=== PATIENT | male | born 1985 | race Caucasian/White ===

== ENCOUNTER 2021-02-05 10:01 | Emergency (ER) | payer OTHER ==
[~2021-02-05] VITALS: Ht 172.7 cm; Wt 121.7 kg
--- NOTE | 2021-02-05 10:40 | RAD ---
EXAM: Left knee, 4 views; left foot, 3 views; left tibia and fibula, 2 views. HISTORY: Blunt trauma. COMPARISON: None. FINDINGS: 3 views of the left foot, 4 views of the left ankle and 2 views of the left tibia and fibul a are obtained. There is no fracture, dislocation or subluxation. There is no knee effusion. There is enthesopathy at the Achilles tendon insertion. There are corticated ossicles inferior to the medial and lateral malleoli, likely due to the sequela of remote injury. The ankle mortise is intact. There is no osteochondral lesion. IMPRESSION: No acute osseous finding. Electronically signed by: Magdalena Lopez MD (02/05/2021 10:38 AM) [id number]
--- NOTE | 2021-02-05 11:00 | PHYS DOC ---
Past History Past Surgical History: Appendectomy Alcohol Use: Occasionally General Adult EDM: Chief Complaint: LOWER EXT PAIN HPI: HPI: 36-year-old male presents with a left salinas pain and bruising of the medial left foot. The patient slipped in the shower 2 days ago and hit his salinas on a metal edge. He went down to the ground from the pain. Initially he was concerned it might be broken because it was so painful. He has abrasions that bled but he was able to control them at home. After a few moments he was able to stand up and ambulate with some discomfort. He has been doing okay except for some soreness, but when he woke up this morning he had bruising to the instep of his left foot. He decided he should come in for evaluation. He is able to walk. He denies numbness, tingling, or altered sensation. He has no other specific complaints at this time. Review of Systems: Review of Systems: Constitutional: Denies fever or chills Eyes: Denies change in visual acuity HENT: Denies nasal congestion or sore throat Respiratory: Denies cough or shortness of breath Cardiovascular: Denies chest pain or edema GI: Denies abdominal pain, nausea, vomiting, bloody stools or diarrhea : Denies dysuria Musculoskeletal: Left sal[place] pain Integument: Ecchymosis left medial foot Neurologic: Denies headache, focal weakness or sensory changes Endocrine: Denies polyuria or polydipsia Lymphatic: Denies swollen glands Psychiatric: Denies depression or anxiety Allergies: Allergies: Allergies Coded Allergies Type Severity Reaction Last Updated Verified No Known Drug Allergies 02/05/21 No Physical Exam: PE: Constitutional: Well developed, well nourished, no acute distress, non-toxic appearance. [] HENT: Normocephalic, atraumatic, bilateral external ears normal, oropharynx moist, no oral exudates, nose normal. [] Eyes: PERRLA, EOMI, conjunctiva normal, no discharge. [] Neck: Normal range of motion, no tenderness, supple, no stridor. [] Cardiovascular: Heart rate regular rhythm, no murmur [] Lungs & Thorax: Bilateral breath sounds clear to auscultation [] Abdomen: Bowel sounds normal, soft, no tenderness, no masses, no pulsatile masses. [] Skin: Abrasions to left medial tibia. Ecchymosis left medial foot nontender to palpation. [] Back: No tenderness, no CVA tenderness. [] Extremities: Tenderness of the left mid tibia around the abrasions. Normal ambulation and range of motion. [] Neurologic: Alert and oriented X 3, normal motor function, normal sensory function, no focal deficits noted. [] Psychologic: Affect normal, judgement normal, mood normal. [] Current Patient Data: Vital Signs: Vital Signs Date Time Temp Pulse Resp B/P (MAP) Pulse Ox O2 Delivery O2 Flow Rate FiO2 02/05/21 10:05 97.9 92 20 162/85 (110) 98 Room Air EKG: EKG: [] Radiology/Procedures: Radiology/Procedures: [] Heart Score: C/O Chest Pain: N/A Risk Factors: Risk Factors: DM, Current or recent (<one month) smoker, HTN, HLP, family history of CAD, obesity. Risk Scores: Score 0 - 3: 2.5% MACE over next 6 weeks - Discharge Home Score 4 - 6: 20.3% MACE over next 6 weeks - Admit for Clinical Observation Score 7 - 10: 72.7% MACE over next 6 weeks - Early Invasive Strategies Course & Med Decision Making: Course & Med Decision Making Pertinent Labs and Imaging studies reviewed. (See chart for details) [] Dragon Disclaimer: Anna Disclaimer: This electronic medical record was generated, in whole or in part, using a voice recognition dictation system. Departure Departure: Impression: Primary Impression: Contusion of leg, left Qualified Codes: S80.12XA - Contusion of left lower leg, initial encounter Disposition: HOME / SELF CARE / HOMELESS Condition: STABLE Referrals: JUAN RAMON SNELL (PCP) Patient Instructions: Contusion, [id number] VAHID BERGER DO Feb 05, 2021 11:00
[2021-02-05 11:06] VITALS: BP 116/85
== END 2021-02-05 11:06 | disposition home or self-care (01) ==
LOC: ER 10:01
DX: S90.32XA Contusion of left foot, initial encounter (principal); S80.812A Abrasion, left lower leg, initial encounter; W18.49XA Other slipping, tripping and stumbling without falling, initial encounter; Y93.89 Activity, other specified; Y92.89 Other specified places as the place of occurrence of the external cause; Y99.8 Other external cause status
CPT/HCPCS: 73564; 73590; 73630; 99284